=== PATIENT | female | born 1980 | race Asian ===

== ENCOUNTER → 2016-09-25 | Outpatient (CLI) | payer OTHER | LOC: COL.RAD 14:00 | DX: N97.1 Female infertility of tubal origin (principal) | CPT/HCPCS: Q9967 ==

== ENCOUNTER → 2017-03-23 | Outpatient (CLI) | payer OTHER | LOC: COL.RAD 13:00 | DX: N97.1 Female infertility of tubal origin (principal) | CPT/HCPCS: Q9967 ==